=== PATIENT | female | born 1975 | race Hispanic/Latino ===

== ENCOUNTER 2017-09-19 08:51 | Inpatient (IN) | payer BC ==
[2017-09-14 10:10] VITALS: BMI 22.7
[2017-09-19] MEDS ORDERED: Lactated Ringer's 1,000 ML IV ONE ×3 (10:00→16:41)
[2017-09-19] MEDS ORDERED: SENSORCAINE 0.5% W/EPINEPHRINE 50ML MDV IJ ONE (13:31)
[2017-09-19] MEDS ORDERED: ceFAZolin IV 1 gm in Dextrose 2 GM/100 ML BAG IVPB ONE (13:31)
[2017-09-19] MEDS ORDERED: Lidocaine 4% (Laryng-O-Jet) Kit MM ONE (14:13)
[2017-09-19] MEDS ORDERED: Propofol 10 mg/ml Inj (20 ML) ONE (14:13)
[2017-09-19] MEDS ORDERED: ePHEDrine 50 mg/ml Inj ONE (14:13)
[2017-09-19] MEDS ORDERED: Midazolam 2 MG/2 ML VIAL ONE (14:13)
[2017-09-19] MEDS ORDERED: Rocuronium 10 mg/ml (5 ml) ONE (14:13)
[2017-09-19] MEDS ORDERED: Succinylcholine 200 mg/10 ml Inj IV ONE (14:13)
[2017-09-19] MEDS ORDERED: Dexamethasone 4 mg/1 ml ONE (15:02)
[2017-09-19] MEDS ORDERED: Methylene Blue 10 mg/mL(10ml) IV ONE ×2 (16:00→16:15)
[2017-09-19] MEDS ORDERED: HEMOSTATIC MATRIX 10 ML DIS.NEEDLE TOP ONE (16:00)
[2017-09-19] MEDS ORDERED: Neostigmine Methylsulfate 2 MG/2 ML ML IV ONE (16:21)
[2017-09-19] MEDS ORDERED: Sevoflurane - Inhalation Anesthetic Liq (250 ml) ONE (16:21)
[2017-09-19] MEDS ORDERED: Lactated Ringer's 1,000 ML IV SCH (16:45)
[2017-09-19] MEDS ORDERED: Oxycodone/Acetaminophen 5/325 mg Tab PO PRN (17:07)
[2017-09-19] MEDS: HYDROmorphone 0.5 mg/0.5 ml ISec IVP PRN ×3 (17:25→18:10)
[2017-09-19] MEDS ORDERED: Sodium Chloride 0.9% 1,000 ML IV ONE (18:30)
[2017-09-19] MEDS ORDERED: ceFAZolin IV 2 gm in Dextrose 2 GM/50 ML BAG IVPB SCH (22:00)
[2017-09-20] MEDS: Sodium Chloride 0.9% 1,000 ML IV SCH ×2 (04:13→04:15)
[2017-09-20] MEDS: ceFAZolin IV 2 gm in Dextrose 2 GM/50 ML BAG IVPB SCH ×2 (06:21→13:06)
[2017-09-20 06:41] LABS: BASO % 0.2 % (0.0-2.0); HEMATOCRIT 31.1 % (34.0-47.0); LYMPH # 1.2 K/uL (1.0-4.3); LYMPH % 11.2 % (20.0-40.0); MEAN CELL VOLUME 79.3 fl (81.0-99.0); MEAN CORPUSCULAR HEMOGLOBIN 26.6 pg (27.0-31.0); MEAN CORPUSCULAR HGB CONC 33.5 g/dL (33.0-37.0); MEAN PLATELET VOLUME 9.4 fl (7.2-11.7); MONO # 0.7 K/uL (0.0-0.8); MONO % 6.6 % (0.0-10.0); NEUT # 8.6 K/uL (1.8-7.0); RED CELL DISTRIBUTION WIDTH 14.2 % (11.5-14.5); WHITE BLOOD COUNT 10.5 K/uL (4.8-10.8)
[2017-09-20 06:51] LABS: BLOOD UREA NITROGEN 5 mg/dl (7-17); CALCIUM 8.6 mg/dL (8.4-10.2); CARBON DIOXIDE 23 mmol/L (22-30); CHLORIDE 109 mmol/L (98-107); GFR AFRICAN-AMERICAN > 60; GLUCOSE,RANDOM 89 mg/dL (65-105); SODIUM 139 mmol/l (132-148)
[2017-09-20 07:23] VITALS: BP 108/69; O2SAT 100
[2017-09-20 09:31] VITALS: RESP 14
--- NOTE | 2017-09-20 10:35 | CP.PCM.PN ---
Subjective - Date & Time of Evaluation Date of Evaluation: 09/20/17 Time of Evaluation: 10:35 - Subjective Subjective: Patient states pain is well controlled with toradol. Says she gets nauseated with percocet and requests anyother medication. Voided x 2, c/o gas and burping. Tolerating fluids little appetite Objective - Vital Signs/Intake and Output Vital Signs (last 24 hours): Temp Pulse Resp BP Pulse Ox 98.4 F 75 14 108/69 100 09/20/17 09:00 09/20/17 09:00 09/20/17 09:00 09/20/17 09:00 09/20/17 09:00 - Medications Medications: Current Medications Hydromorphone HCl (Dilaudid) 1 mg IVP Q3 PRN PRN Reason: Pain, severe (8-10) Lactated Ringer's (Lactated Ringer's) 1,000 mls @ 100 mls/hr IV .Q10H [facility] Sodium Chloride (Sodium Chloride 0.9%) 1,000 mls @ 100 mls/hr IV .Q10H [facility] Last Admin: 09/20/17 04:15 Dose: Not Given Cefazolin Sodium/Dextrose (Ancef Iv 2 Gm Duplex) 2 gm in 50 mls @ 50 mls/hr IVPB Q8@0600,1400,2200 [facility] PRN Reason: Protocol Stop: 09/20/17 14:59 Last Admin: 09/20/17 06:21 Dose: 50 mls/hr Ketorolac Tromethamine (Toradol) 30 mg IVP Q6 [facility] Last Admin: 09/20/17 06:36 Dose: 30 mg Ondansetron HCl (Zofran Inj) 4 mg IVP Q6 PRN PRN Reason: Nausea/Vomiting Oxycodone/Acetaminophen (Percocet 5/325 Mg Tab) 2 tab PO Q6 PRN PRN Reason: Pain, moderate (4-7) Stop: 09/22/17 17:08 - Labs Labs: 09/20/17 05:45 09/20/17 05:45 - GI/Abdominal Exam Additional comments: abd soft, minimally tender, incision sites intact, dry no erythema. small amount vaginal bleeding. Assessment and Plan (1) Endometriosis Assessment & Plan: POD#1 s/p robotic assisted hysterectomy, B salpingectomy d/c home today ultracet rx given call office for f/u appt in 1-2 weeks, encourage OOB/ambulation as tolerated d//w DR. Roberts, agrees with above [place] [employer] patient report reviewed, no CDS. Patient counseled on the risks of addiction, physical or psychological dependence, and overdose associated with opioid drugs and the danger of taking opioid drugs with alcohol and other central nervous system depressants, and cautioned patient on storage and disposal. Status: Acute
[2017-09-20 15:19] VITALS: PULSE 76; TEMP 98.2
--- NOTE | 2017-09-20 15:40 | PCM.SURG1 ---
Surgeon's Initial Post Op Note - Surgeon's Notes Surgeon: connor bashir MD Pull Up Hand: samanta thomas md, nohemi RANDALL Type of Anesthesia: General Endo, Local Anesthesia Administered By: Lisa Granados MD Pre-Operative Diagnosis: Chronic pelvic pain. Abnormal uterine bleeding. Prolapse uterus. Urinary incontinence Operative Findings: Extensive Endometriosis Stage 4. Bulky fibriod uterus. Prolapse uterus, epical prolapse and cystocele. Endometrioma within left ovary. Extensive bowel adhessions. Extensive peritoneal adhessions Post-Operative Diagnosis: Stage 4 endometriosis. Chronic pelvic pain. Abnormal uterine bleeding. Prolapse uterus. Urinary incontinence Operation Performed: Total robotic hysterectomy LSO, right salpingectomy. Uterosacroligament suspenssion. Robotic assited excision of endoemtriosis. Enterolysis. Exploration of ureters. Diagnostic cystoscopy Specimen/Specimens Removed: Uterus, cervix tubes and left ovary. Endometriosis. Endometrioma Estimated Blood Loss: EBL {In ML}: 20 Blood Products Given: N/A Drains Used: No Drains Post-Op Condition: Good Date of Surgery/Procedure: 09/19/17 Time of Surgery/Procedure: 11:00
--- NOTE | 2017-09-20 15:45 | PCM.OP ---
Operative Report - Operative Report Date of Surgery/Procedure: 09/19/17 Time of Surgery/Procedure: 11:00 Surgeon: Mellisa Carroll MD Manufacturing Recruiter: Kiersten Cm MD Anesthesia/Sedation: General Anasthesia Pre-Operative Diagnosis: chronic pelvic pain. Fibroid uterus. Urinary urgency and incontinence. Abnormal uterine bleeding. Severe dyspareunia Post-Operative Diagnosis: stage IV endometriosis. chronic pelvic pain. Fibroid uterus. Urinary urgency and incontinence. Abnormal uterine bleeding. Severe dyspareunia Indication for Surgery: worsening pelvic pain and abnormal bleeding as well as a prolapsed uterus and urinary dysfunction Operative Findings: stage IV endometriosis, epidural uterine prolapse, normal bladder and urethra anatomy as per the cystoscopy Procedure/Operation Description: 1. total robotic hysterectomy LEFT salpingo- oophorectomy and RIGHT salpingectomy. 2. uterosacral ligament suspension colpopexy. 3.Exploration of ureters. 4. Enterolysis. 5. diagnostic cystoscopy. Detailed Operative Report. This is a 42 years old female with symptomatic uterine prolapse, severe pelvic pain, abnormal uterine bleeding, cystocele, and urinary incontinence. The patient completed an extensive preoperative workup, which included an ultrasound, as well as a pap smear, chemistry and hematology studies. The patient reported these symptoms and problems as debilitating, and adversely affecting her quality of life. Following a period of failed conservative management, and patient decision was made to proceed with a more invasive approach to address the above noted problems. A decision was finally made to proceed with a total robotic assisted hysterectomy, possible bilateral salpingoophorectomy, and vaginal vault suspension. A detailed description of this robotic procedure was given to the patient, all risks and benefits of the surgical modality was reviewed, printed material was also given to the patient regarding robotic surgery. The patient fully understood all the risks and benefits and elected to proceed with this proposed procedure. After proper consent was obtained from the patient was taken to the operating room, proper patient identification was completed. She was placed in dorsal lithotomy position; general anesthesia was induced without difficulty. Her legs were placed in adjustable Bryson stirrups. Careful attention was placed to ovoid over-flexion or over-rotation of the lower extremities at the hip or the knee joints. She was prepped and draped appropriately for robotic assisted hysterectomy. Wayne catheter was inserted under sterile conditions. A weighted speculum was placed in the vagina, anterior lip of cervix was grasped with a tenaculum, and a V-care uterine manipulator was inserted through the cervix and secured. The weighted speculum and tenaculum were removed from the patient's vagina and attention was turned to the patient's abdomen. Local anesthetic solutions of 0.25% Marcaine with epinephrine were utilized to infiltrate the skin prior to all abdominal skin incisions. A total of 20 mL of 0.25% Marcaine was utilized throughout the procedure. While tenting the abdominal wall, a Veres needle was inserted through the umbilicus and a pneumoperitoneum was obtained. Intraperitoneal access was verified with a drop in intraperitoneal pressure. Approximately at the umbilical fold, in the midline, a 1 cm incision was made with a scalpel and a trocar and sleeve were introduced. A robotic camera was inserted and an initial survey of the patient's abdomen revealed an enlarged bulky uterus, boggy in appearance suspicious for adenomyosis. Extensive endometriosis disease was noted throughout the pelvic cavity with a lesions along the posterior cul-de-sac extending to the pelvic brim and above. Large endometrioma originating from the LEFT ovary causing severe adhesions to the pelvic sidewall and to the uterus engulfing the LEFT fallopian tube. Similarly , extensive destructive endometriosis lesions were noted on the opposite pelvic sidewall involving the opposite ovary. Extensive endometriosis lesions involving the rectum as well as the posterior lower uterine segment. The patient was placed in Trendelenburg position ready for a da Henri robotic system to be docked. 3 robotic ports were utilized for this procedure. The first robotic port was placed on the patient's left side approximately 5 cm superior to the superior crest on the patient's left side, the second robotic port was placed 8 cm right lateral to the camera port and the third robotic port was placed approx. 5 centimeters superior to the right superior iliac crest. All ports were aligned along the same horizontal line on the abdomen in an arch like fashion. An mobile unit assistant port was placed 8 cm left lateral to the camera port in the midline. For the mobile unit assistant port we utilized the Versa step trocar system. All trocars were inserted under direct visualization. The placement of the trocars was all accomplished under careful and meticulous placement under direct visualization. Following the placement of all trocars, the da Henri robotic system was docked in a parallel method without difficulty. The following instruments were utilized for this procedure: the bipolar cautery device, a monopolar serina and finally a ProGrasp. Prior to the start of the hysterectomy, extensive and meticulous lysis of peritoneal adhesions as well as bowel adhesions was achieved utilizing sharp and blunt dissection. Extensive excisions of multiple endometriosis lesions, wide excisions of these lesions was accomplished utilizing sharp and blunt dissections. All excisions were labeled appropriately and sent to pathology. Due to the close proximity of this endometriosis lesions both ureters, the retroperitoneum was entered along the pelvic sidewall and the ureters were explored from the pelvic brim all the way down towards the uterocervical junction. Both ureters and their courses were visualized, peristalsis bilaterally. Due to the Destructive nature of the endometrioma on the LEFT ovary and fallopian tube, decision was made to complete a LEFT salpingo-oophorectomy and only a RIGHT salpingectomy preserving the RIGHT ovary. Endometriosis lesions were excised off the RIGHT ovary, the RIGHT fallopian tube was excised ready to be extracted en bloc with the uterus and cervix. Meticulous slow and careful dissection was needed to excise and separate the LEFT ovary and tube from the pelvic sidewall in close proximity to the LEFT iliac vessels as well as LEFT ureter. The LEFT ovary and tube was excised off the pelvic sidewall ready to be extracted en bloc with uterus and cervix. On the patient's right side, the ovary and and the round ligaments were identified cauterized and transected, the broad ligament was divided all the way down to the utero cervical junction bladder flap was then created by transecting the visceroperitoneum over the bladder reflection. In a similar fashion, the left round ligament, IP ligament and broad ligament were cauterized sealed and transected, taken down to the level of the cervical uterine junction. Uterine vessels on both sides were sealed and transected. The Uterosacral ligaments were sealed and transected. The monopolar serina and PK were utilized to complete the colpotomy incision around the care vaginal ring. Excellent hemostasis was noted. The uterus, cervix, LEFT ovary and fallopian tubes were delivered transvaginally through the colpotomy incision and sent to pathology for permanent analysis. The colpotomy incision was closed with 2-0 v LOC in a continuous fashion with excellent hemostasis. The vaginal vault suspension was achieved by suspending the vaginal cuff to the base of the uterosacral ligaments bilaterally. For uterosacral ligament suspension portion of the procedure, the ureters were once again identified to avoid possible compromise or kinking while suspending the vaginal vault. A 2-0 permanent suture material ([place]) was utilized to suspend the uterosacral ligaments from the base to the vaginal vault cuff incision including both anterior and posterior aspect of the colpotomy incision. Utilizing a 3-0 Monocryl suture, the peritoneum over the colpotomy incision and uterosacral ligaments was re- approximated in a continuous fashion. The abdomen was throughout irrigated and cleared of all clots and debris. FloSeal as well as Interceed was applied to the incision sites. Excellent hemostasis was again noted. All robotic and laparoscopic instruments removed under direct visualization. The robotic arms were undocked, and a da SuddenValues robotic system was wheeled away from the patient' s bedside. Both mobile unit assistant and camera ports were closed at the fascial layer utilizing a 2-0 Vicryl suture material in interrupted fashion. Pneumoperitoneum was reduced and all skin incisions were closed utilizing 4-0 Monocryl in a subcutaneous fashion. Dermabond was applied to all incisions. At the conclusion of this hysterectomy, a diagnostic cystoscopy was completed. The Wayne catheter was removed; the bladder was distended with approximately 350 cc of normal saline. A 30 cystoscope was introduced and a survey of the bladder anatomy was completed. The base, and the dome of the bladder appeared normal, both ureteral orifices appeared normal and were efluxing urine freely. The urethra appeared normal. A Wayne catheter was reinserted. Vaginal packing was inserted to be removed the next morning. Patient emerged from general anesthesia without difficulty, and was taken to recovery room in stable condition. Prior to incision the patient received antibiotics, prior to closure sponge lap and needle counts were correct x2. Estimated Blood Loss: 20 Blood Replaced: none Sponge/Instrument Count: count was correct x2 Drains: none Complications: none Specimen: uterus fallopian tubes, LEFT ovary, endometrioma Discharge & Condition: discharge home in stable condition
== END 2017-09-20 15:15 | disposition home or self-care (01) | DRG 743 ==
LOC: H.OPSURG 08:51 → H.MEDSURG1 16:52
PROVIDERS: ADMIT Obstetrics & Gynecology; ATTEND Obstetrics & Gynecology
PROC: 0UT17ZZ Resection of Left Ovary, Via Natural or Artificial Opening (ICD-10-PCS; 2017-09-19)
PROC: 0DNW0ZZ Release Peritoneum, Open Approach (ICD-10-PCS; 2017-09-19)
PROC: 0USG0ZZ Reposition Vagina, Open Approach (ICD-10-PCS; 2017-09-19)
PROC: 8E0W0CZ Robotic Assisted Procedure of Trunk Region, Open Approach (ICD-10-PCS; 2017-09-19)
PROC: 0UT97ZZ Resection of Uterus, Via Natural or Artificial Opening (ICD-10-PCS; principal; 2017-09-19 11:00)
PROC: 0UT57ZZ Resection of Right Fallopian Tube, Via Natural or Artificial Opening (ICD-10-PCS; 2017-09-19 11:00)
DX: D25.9 Leiomyoma of uterus, unspecified (principal); G89.29 Other chronic pain; N73.6 Female pelvic peritoneal adhesions (postinfective); N80.3 Endometriosis of pelvic peritoneum; N80.1 Endometriosis of ovary; N81.4 Uterovaginal prolapse, unspecified; N93.9 Abnormal uterine and vaginal bleeding, unspecified; R32 Unspecified urinary incontinence